=== PATIENT | male | born 1940 | race Caucasian/White ===

== ENCOUNTER 2016-08-24 17:11 | Observation (INO) | payer OTHER, MEDICAID ==
[~2016-08-24] VITALS: Ht 177.8 cm; Wt 77.1 kg
[2016-08-24 22:48] LABS: Basophils # (auto) 0 uL; Basophils % (auto) 0.2 % (0.0-2.0); Eosinophils # (auto) 0.1 uL; Eosinophils % (auto) 0.8 % (0.0-7.0); Hematocrit 48.4 % (41.0-53.0); Hemoglobin 15.9 g/dL (13.5-17.5); Lymphocytes # (auto) 1.5 uL; Lymphocytes % (auto) 12.3 % (10.0-50.0); Mean Corpuscular Hemoglobin 30.4 pg (28.0-32.0); Mean Corpuscular Hgb Conc. 32.8 g/dL (32.0-36.0); Mean Corpuscular Volume 92.6 fL (80.0-100.0); Mean Platelet Volume 8.7 fL (7.4-10.4); Monocytes # (auto) 0.8 uL; Monocytes % (auto) 6.2 % (0.0-12.0); Neutrophils # (auto) 9.9 uL; Neutrophils % (auto) 80.5 % (37.0-80.0); Platelet Count (auto) 251 10^3/uL (140-450); Red Cell Distribution Width 13.5 % (11.6-16.0); White Blood Cell 12.2 10^3/uL (4.4-10.8)
[2016-08-24] MEDS ORDERED: METHOCARBAMOL 500 MG TAB PO ONE (23:00)
[2016-08-24] MEDS ORDERED: ONDANSETRON HCL 4 MG/2 ML VIAL IV ONE (23:00)
[2016-08-24] MEDS ORDERED: MORPHINE SULFATE 4 MG/ML SYRG IV ONE (23:00)
[2016-08-24 23:04] LABS: Albumin 3.7 g/dL (3.4-5.0); Anion Gap 11 (5-15); Blood Urea Nitrogen 10 mg/dL (7-18); Calcium 8.7 mg/dL (8.5-10.1); Carbon Dioxide 24 mmol/L (21-32); Chloride 109 mmol/L (98-107); Glucose 120 mg/dL (74-106); Potassium 3.8 mmol/L (3.5-5.1); Sodium 144 mmol/L (136-145)
[2016-08-24 23:06] LABS: Aspartate Aminotransferase 19 U/L (15-37); BUN/Creatinine Ratio 12.5; GFR African American 122 mL/min; GFR Non-African American 101 mL/min
[2016-08-24 23:09] LABS: INR 1.11 (0.9-1.15); Partial Thromboplastin Time 25.3 sec (22.64-33.71); Prothrombin Time 11.4 sec (9.37-12.3)
[2016-08-24 23:10] LABS: Alkaline Phosphatase 101 U/L (45-117); Bilirubin, Total 0.6 mg/dL (0.2-1.0); Total Protein 8.3 g/dL (6.4-8.2)
[2016-08-24] MEDS ORDERED: HYDROmorphone HCL 2 MG/ML VL IV ONE (23:45)
[2016-08-25] MEDS ORDERED: ONDANSETRON HCL 4 MG/2 ML VIAL IV ONE (02:45)
[2016-08-25] MEDS ORDERED: HYDROmorphone HCL 2 MG/ML VL IV ONE (02:45)
[2016-08-25 04:23] VITALS: BP 144/92
== END 2016-08-25 06:10 | disposition home or self-care (01) | DRG 552 ==
LOC: ER 17:15 → OVERFLOW 08-25 02:53 → ER 08-25 06:10
PROVIDERS: ADMIT Emergency Medicine; ATTEND Emergency Medicine
DX: M51.17 Intervertebral disc disorders with radiculopathy, lumbosacral region (principal); S74.00XA Injury of sciatic nerve at hip and thigh level, unspecified leg, initial encounter; F17.210 Nicotine dependence, cigarettes, uncomplicated; M54.40 Lumbago with sciatica, unspecified side; W17.89XA Other fall from one level to another, initial encounter; Y93.39 Activity, other involving climbing, rappelling and jumping off; Y92.89 Other specified places as the place of occurrence of the external cause; Y99.8 Other external cause status
CPT/HCPCS: 36415; 72131; 73502; 73700; 80053; 84484; 85025; 85610; 85730; 93005; 96374; 96375; 96376; 99285; G0378; J1170; J2270; J2405

== ENCOUNTER 2017-07-26 10:24 | Observation (INO) | payer OTHER, MEDICAID ==
[~2017-07-26] VITALS: Ht 185.4 cm; Wt 81.6 kg
[2017-07-26 10:28] VITALS: BP 148/71
[2017-07-26 11:44] LABS: Basophils # (auto) 0.1 uL; Eosinophils # (auto) 0.2 uL; Eosinophils % (auto) 2.3 % (0.0-7.0); Hematocrit 44.9 % (41.0-53.0); Lymphocytes # (auto) 1.2 uL; Lymphocytes % (auto) 17.7 % (10.0-50.0); Mean Corpuscular Hemoglobin 30.8 pg (28.0-32.0); Mean Corpuscular Hgb Conc. 33.4 g/dL (32.0-36.0); Mean Corpuscular Volume 92.2 fL (80.0-100.0); Monocytes # (auto) 0.6 uL; Monocytes % (auto) 8.6 % (0.0-12.0); Neutrophils # (auto) 4.8 uL; Neutrophils % (auto) 70.4 % (37.0-80.0); Platelet Count (auto) 243 10^3/uL (140-450); Red Blood Cells 4.87 10^6/uL (4.5-5.90); Red Cell Distribution Width 13.7 % (11.8-14.3); White Blood Cell 6.8 10^3/uL (4.4-10.8)
[2017-07-26 12:38] LABS: Alanine Aminotransferase 18 U/L (16-61); Albumin 3.3 g/dL (3.4-5.0); Anion Gap 6 (5-15); Aspartate Aminotransferase 17 U/L (15-37); BUN/Creatinine Ratio 18.3; Blood Alcohol < 3.0 mg/dL (0-5); Blood Urea Nitrogen 15 mg/dL (7-18); Calcium 8.6 mg/dL (8.5-10.1); Carbon Dioxide 25 mmol/L (21-32); Chloride 109 mmol/L (98-107); GFR African American 118 mL/min; GFR Non-African American 98 mL/min; Glucose 90 mg/dL (74-106); Magnesium 2.1 mg/dL (1.6-2.6); Potassium 3.9 mmol/L (3.5-5.1); Sodium 140 mmol/L (136-145)
[2017-07-26 12:43] LABS: Alkaline Phosphatase 114 U/L (45-117); Bilirubin, Total 0.9 mg/dL (0.2-1.0); Total Protein 7.5 g/dL (6.4-8.2)
[2017-07-26] MEDS ORDERED: SODIUM CHLORIDE 0.9% 1,000 ML IVB ONE (12:59)
[2017-07-26] MEDS ORDERED: cefTRIAXone 1GM/10ml IVPUSH 10 ML IV ONE (13:00)
[2017-07-26 13:29] LABS: INR 1.03 (0.9-1.15); Partial Thromboplastin Time 25.7 sec (22.64-33.71); Prothrombin Time 11.2 sec (9.37-12.3)
== END 2017-07-26 13:30 | disposition left against medical advice (07) | DRG 948 ==
LOC: EDUNIT# 10:24 → ER 10:24 → OVERFLOW 12:59 → ER 13:30 → OVERFLOW 13:30
PROVIDERS: ADMIT Family Medicine; ATTEND Family Medicine
DX: R41.82 Altered mental status, unspecified (principal)
CPT/HCPCS: 36415; 70450; 71045; 80053; 80320; 83605; 83735; 84484; 85025; 85610; 85730; 87040; 93005; 99281; G0378

== ENCOUNTER 2018-02-02 18:53 | Emergency (ER) | payer OTHER ==
[~2018-02-02] VITALS: Ht 177.8 cm; Wt 77.1 kg
[2018-02-02 19:02] VITALS: BP 159/82
[2018-02-02 19:42] LABS: Basophils # (auto) 0.1 uL; Basophils % (auto) 0.8 % (0.0-2.0); Eosinophils # (auto) 0.2 uL; Eosinophils % (auto) 2.2 % (0.0-7.0); Hematocrit 46.1 % (41.0-53.0); Hemoglobin 15.7 g/dL (13.5-17.5); Lymphocytes # (auto) 1.7 uL; Lymphocytes % (auto) 25.2 % (10.0-50.0); Mean Corpuscular Hemoglobin 31.3 pg (28.0-32.0); Mean Corpuscular Hgb Conc. 34.1 g/dL (32.0-36.0); Monocytes # (auto) 0.9 uL; Monocytes % (auto) 13.6 % (0.0-12.0); Neutrophils # (auto) 3.9 uL; Neutrophils % (auto) 58.2 % (37.0-80.0); Nucleated Red Blood Cells % 0.1 %; Platelet Count (auto) 243 10^3/uL (140-450); Red Blood Cells 5.01 10^6/uL (4.5-5.90); Red Cell Distribution Width 13.6 % (11.8-14.3); White Blood Cell 6.7 10^3/uL (4.4-10.8)
[2018-02-02 20:14] LABS: Alanine Aminotransferase 26 U/L (16-61); Albumin 3.6 g/dL (3.4-5.0); Alkaline Phosphatase 114 U/L (45-117); Anion Gap 10 (5-15); Aspartate Aminotransferase 24 U/L (15-37); BUN/Creatinine Ratio 19.1; Bilirubin, Total 0.7 mg/dL (0.2-1.0); Blood Urea Nitrogen 18 mg/dL (7-18); Calcium 8.8 mg/dL (8.5-10.1); Carbon Dioxide 23 mmol/L (21-32); Chloride 107 mmol/L (98-107); GFR African American 101 mL/min; GFR Non-African American 83 mL/min; Glucose 78 mg/dL (74-106); Magnesium 2.8 mg/dL (1.6-2.6); Potassium 3.9 mmol/L (3.5-5.1); Sodium 140 mmol/L (136-145); Total Protein 8.2 g/dL (6.4-8.2)
== END 2018-02-02 21:53 | disposition left against medical advice (07) ==
LOC: ER 18:53
DX: R20.0 Anesthesia of skin (principal); Z53.21 Procedure and treatment not carried out due to patient leaving prior to being seen by health care provider
CPT/HCPCS: 36415; 71046; 80053; 83735; 84484; 85025; 93005